=== PATIENT | male | born 1945 ===

== ENCOUNTER → 2023-10-02 02:18 | Outpatient (CLI) | payer MEDICARE, BC, SELFPAY ==
--- NOTE | 2023-10-02 | ETT_ITS ---
APPROVED REPORT Exam: Exercise Treadmill Patient Location: Out-Patient Room/Bed: Stress Nurse: Telma Ramos RN Ordering Provider:LATOYA HERCULES, Contact Number: [phone] BMI: 28.98 Baseline Rhythm: Sinus Rhythm Indications: Chest pain Medical History Medical History: AAA, CAD, HLD, HTN, overweight, essential tremor, insomnia, migraines, EF 60-65% Cardiac Medications: Aspirin, atorvastatin, lisinopril, metoprolol succinate, gabapentin, nitro, tams ulosin, tadalafil Allergies: NKDA Cardiac Risk Factors: Family hx, HTN, HLD, CVD, former smoker Previous Cardiac Procedures: CABG x3 Pretest Chest Pain Characteristics: None Exercise History: Indeterminate Physical Disabilities: None Lung Sounds: Clear to auscultation Heart Sounds: Regular Stress Test Details Test: Exercise stress testing was performed using a Ranjit protocol. Rest Stress HR Resting HR Supine: 79 bpm Max Heart Rate (APMHR): 144 bpm Resting HR Standin bpm Target HR (85% APMHR): 122 bpm Max HR Achieved: 140 bpm % of APMHR: 97 Recovery HR: 73 bpm HR response to stress: Normal HR response to stress BP Resting BP Supine: 152/80 mmHg Resting BP Standin/78 mmHg Max BP: 192/80 mmHg Recovery BP: 140/70 mmHg BP response to stress: Normal blood pressure response to stress. ECG Resting ECG: Sinus Rhythm Stress ECG: Sinus Tachycardia ST Change: No significant ST segment changes noted Arrhythmia: Occasional PAC's Recovery ECG: Sinus Rhythm Recovery ST Change: No significant ST segment changes noted Recovery Arrhythmia: Occasional PAC's Clinical Reason for Termination: Target HR Achieved, Fatigue Stress Symptoms: General Fatigue, mild SOB, chest and R abd burning sensation. Exercise duration: 05 min57 sec Highest Stage Reached: Stage 2: 2.5 mph at 12% grade. Exercise capacity: 7.05 METs Angina Score: Non-Limiting Rate Pressure Product: [id number] Stress ECG Conclusion 1. Resting electrocardiogram showed low voltage otherwise normal 2. Patient exercised on the Ranjit protocol and completed a workload of 7 METS 3. Heart rate and blood pressure response to exercise. The patient achieved 97% of predicted heart r ate for age 4. There was no electrocardiographic evidence of myocardial ischemia 5. There were no significant dysrhythmias Stress Test Summary STAGE Time (mins) Speed (mph) Grade (%) HR BP SpO2 SYMPTOMS METS Supine 79 152/80 Standing 83 154/78 1 3 1.7 10 112 180/74 95% Patient c/o right sided chest burning and right upper abd burnin g which he states was intermittent. Patient unable to rate level of discomfort. 4.5 2 6 2.5 12 138 Chest and abd burning resolved. 7 1 min recovery 111 192/80 3 min recovery 78 152/68 6 min recovery 73 140/70 All symptoms resolved. Addtional supine imagaing captured due to lead reversal. Please refer to second supine image.
== END ==
PROVIDERS: Visit Provider Registered Nurse
DX: R07.9 Chest pain, unspecified (principal)
CPT/HCPCS: 93016; 93018; 93017